=== PATIENT | male | born 1945 | race Caucasian/White ===

== ENCOUNTER 2016-08-14 08:12 | Outpatient (RCR) | payer OTHER, MEDICARE ==
[2016-07-03 08:44] LABS: MEAN PLATELET VOLUME 10.8 FL (7.4-10.4); RED BLOOD COUNT 4.7 10^6/uL (4.35-5.85); RED CELL DISTRIBUTION WIDTH 13.4 % (10.0-14.5); WHITE BLOOD COUNT 5.6 10^3/uL (4.3-11.0)
[2016-07-03 09:17] LABS: ALANINE AMINOTRANSFERASE 19 U/L (0-55); ALBUMIN 3.8 G/DL (3.2-4.5); ANION GAP 8 MMOL/L (5-14); ASPARTATE AMINO TRANSFERASE 20 U/L (5-34); BILIRUBIN,TOTAL 1.4 MG/DL (0.1-1.0); BLOOD UREA NITROGEN 13 MG/DL (7-18); BUN/CREATININE RATIO 14; CARBON DIOXIDE 28 MMOL/L (21-32); CHLORIDE 107 MMOL/L (98-107); CREATININE SERUM 0.96 MG/DL (0.60-1.30); GFR ESTIMATED > 60; GLUCOSE 91 MG/DL (70-105); POTASSIUM 3.5 MMOL/L (3.6-5.0); SODIUM 143 MMOL/L (135-145); TOTAL PROTEIN 5.7 G/DL (6.4-8.2)
[2016-07-17 08:26] LABS: MEAN PLATELET VOLUME 10.9 FL (7.4-10.4); RED BLOOD COUNT 4.59 10^6/uL (4.35-5.85); RED CELL DISTRIBUTION WIDTH 13.5 % (10.0-14.5); WHITE BLOOD COUNT 5.6 10^3/uL (4.3-11.0)
[2016-07-17 08:43] LABS: ALANINE AMINOTRANSFERASE 14 U/L (0-55); ALBUMIN 3.8 G/DL (3.2-4.5); ANION GAP 8 MMOL/L (5-14); ASPARTATE AMINO TRANSFERASE 23 U/L (5-34); BLOOD UREA NITROGEN 14 MG/DL (7-18); BUN/CREATININE RATIO 14; CALCIUM 8.8 MG/DL (8.5-10.1); CARBON DIOXIDE 28 MMOL/L (21-32); CHLORIDE 108 MMOL/L (98-107); CREATININE SERUM 1.03 MG/DL (0.60-1.30); GFR ESTIMATED > 60; GLUCOSE 95 MG/DL (70-105); POTASSIUM 3.7 MMOL/L (3.6-5.0); SODIUM 144 MMOL/L (135-145); TOTAL PROTEIN 5.9 G/DL (6.4-8.2)
[2016-08-14 08:30] LABS: MEAN PLATELET VOLUME 10.8 FL (7.4-10.4); RED BLOOD COUNT 4.54 10^6/uL (4.35-5.85); RED CELL DISTRIBUTION WIDTH 13.7 % (10.0-14.5); WHITE BLOOD COUNT 5.1 10^3/uL (4.3-11.0)
[2016-08-14 08:51] LABS: ALANINE AMINOTRANSFERASE 38 U/L (0-55); ALBUMIN 3.8 G/DL (3.2-4.5); ANION GAP 9 MMOL/L (5-14); ASPARTATE AMINO TRANSFERASE 33 U/L (5-34); BILIRUBIN,TOTAL 1.3 MG/DL (0.1-1.0); BLOOD UREA NITROGEN 11 MG/DL (7-18); BUN/CREATININE RATIO 10; CALCIUM 8.7 MG/DL (8.5-10.1); CARBON DIOXIDE 26 MMOL/L (21-32); CHLORIDE 107 MMOL/L (98-107); CREATININE SERUM 1.05 MG/DL (0.60-1.30); GFR ESTIMATED > 60; GLUCOSE 94 MG/DL (70-105); POTASSIUM 3.5 MMOL/L (3.6-5.0); SODIUM 142 MMOL/L (135-145); TOTAL PROTEIN 5.8 G/DL (6.4-8.2)
== END 2016-10-01 | disposition home or self-care (01) ==
LOC: LAB 08:12
PROVIDERS: ATTEND Internal Medicine Pulmonary Disease
DX: Z09 Encounter for follow-up examination after completed treatment for conditions other than malignant neoplasm (principal); Z94.2 Lung transplant status
CPT/HCPCS: 36415; 80053; 80197; 85027

== ENCOUNTER 2016-11-11 09:08 | Outpatient (RCR) | payer OTHER, MEDICARE ==
--- OUTSIDE RECORDS SUMMARY | 2016-11-11 09:10 | XMS REPORT | Continuity of Care Document ---
Author Author [facility] Organization [facility] Address Unknown Phone Unavailable Care Team Providers Care It Technician Name Role Phone NO, LOCAL PHYSICIAN PCP Unavailable Insurance Providers Payer Name Policy Number Subscriber Name Relationship [employer] [place] [id number] AngelinaValery 01 [employer] [id number] Randy Wild 16 Self / Same As Patient Problems No problem information available. Medications No medication information available. Social History Social History Problem Response Recorded Date/Time Recent Foreign Travel No 07/03/2016 8:18am Hospital Discharge Instructions No hospital discharge instructions. Plan of Care Prescriptions See Medication Section Functional Status No functional status results. Allergies, Adverse Reactions, Alerts No allergy information available. Immunizations No immunization records. Vital Signs No known vital signs results. Results Laboratory Results Test Name Result Units Flags Reference Collection Date/Time Result Date/ Time Comments White Blood Count 5.1 10^3/uL 4.3-11.0 08/14/2016 8:20am 08/14/2016 8: 31am Red Blood Count 4.54 10^6/uL 4.35-5.85 08/14/2016 8:20am 08/14/2016 8: 31am Hemoglobin 14.5 G/DL 13.3-17.7 08/14/2016 8:20am 08/14/2016 8:31am Hematocrit 44 % 40-54 08/14/2016 8:20am 08/14/2016 8:31am Mean Corpuscular Volume 97 FL 80-99 08/14/2016 8:20am 08/14/2016 8: 31am Mean Corpuscular Hemoglobin 32 PG 25-34 08/14/2016 8:2008/14/2016 8: 31am Mean Corpuscular Hemoglobin Concent 33 G/DL 32-36 08/14/2016 8: 8:31am Red Cell Distribution Width 13.7 % 10.0-14.5 08/14/2016 8:202015 8:31am Platelet Count 166 10^3/uL 130-400 08/14/2016 8:2008/14/2016 8:31am Mean Platelet Volume 10.8 FL H 7.4-10.4 08/14/2016 8:2008/14/2016 8: 31am Sodium Level 142 MMOL/L 135-145 08/14/2016 8:08/14/2016 8:53am Potassium Level 3.5 MMOL/L L 3.6-5.0 08/14/2016 8:08/14/2016 8:53am Chloride Level 107 MMOL/L 98-107 08/14/2016 8:08/14/2016 8:53am Carbon Dioxide Level 26 MMOL/L 21-32 08/14/2016 8:08/14/2016 8: 53am Anion Gap 9 MMOL/L 5-14 08/14/2016 8:08/14/2016 8:53am Blood Urea Nitrogen 11 MG/DL 7-18 08/14/2016 8:08/14/2016 8:53am Creatinine 1.05 MG/DL 0.60-1.30 08/14/2016 8:08/14/2016 8:53am BUN/Creatinine Ratio 10 08/14/2016 8:08/14/2016 8:53am Estimat Glomerular Filtration Rate > 60 08/14/2016 8:2015 8:53am GFR INTERPRETIVE DATA UNITS FOR ESTIMATED GFR (eGFR): mL/min/1.73 M2 REFERENCE RANGE FOR ESTIMATED GFR (eGFR) eGFR NORMAL eGFR >60 MODERATELY DECREASED eGFR 30-59 SEVERLY DECREASED eGFR 15-29 KIDNEY FAILURE <15 (OR DIALYSIS) Glucose Level 94 MG/DL 70-105 08/14/2016 8:2008/14/2016 8:53am Calcium Level 8.7 MG/DL 8.5-10.1 08/14/2016 8:08/14/2016 8:53am Total Bilirubin 1.3 MG/DL H 0.1-1.0 08/14/2016 8:20am 08/14/2016 8:53am Alkaline Phosphatase 71 U/L 40-136 08/14/2016 8:20am 08/14/2016 8:53am Aspartate Amino Transf (AST/SGOT) 33 U/L 5-34 08/14/2016 8:20am 2015 8:53am Alanine Aminotransferase (ALT/SGPT) 38 U/L 0-55 08/14/2016 8:20am 08/14 8:53am Total Protein 5.8 G/DL L 6.4-8.2 08/14/2016 8:20am 08/14/2016 8:53am Albumin 3.8 G/DL 3.2-4.5 08/14/2016 8:20am 08/14/2016 8:53am Tacrolimus (Prograf) Level 7.2 ng/mL 08/14/2016 8:20am 08/15/2016 6: 24am Upon initiation of therapy (Trough) 15.0-23.0 ng/mL Steady State Therapy (Trough) 7.0-15.0 ng/mL Optimal Steady State Therapy 12.0 ng/mL Test performed at [facility], CLIA# [id number] [address] [place] [address] Procedures No known history of procedures. Encounters Encounter Location Arrival/Admit Date Discharge/Depart Date Attending Provider Discharged Recurring [facility] 08/14/16 8:12am 11:59pm TINY CHAVEZ MD
[2016-11-13 12:46] LABS: SODIUM 143 MMOL/L (135-145)
[2016-11-13 12:49] LABS: ANION GAP 9 MMOL/L (5-14); BLOOD UREA NITROGEN 16 MG/DL (7-18); BUN/CREATININE RATIO 15; CARBON DIOXIDE 27 MMOL/L (21-32); CHLORIDE 107 MMOL/L (98-107); CREATININE SERUM 1.05 MG/DL (0.60-1.30); GFR ESTIMATED > 60; GLUCOSE 99 MG/DL (70-105)
[2016-11-13 12:50] LABS: ALANINE AMINOTRANSFERASE 18 U/L (0-55); ALBUMIN 3.7 G/DL (3.2-4.5); ASPARTATE AMINO TRANSFERASE 20 U/L (5-34); BILIRUBIN,TOTAL 1.2 MG/DL (0.1-1.0); CALCIUM 8.9 MG/DL (8.5-10.1); RED BLOOD COUNT 4.5 10^6/uL (4.35-5.85); WHITE BLOOD COUNT 5.4 10^3/uL (4.3-11.0)
[2016-11-13 12:51] LABS: RED CELL DISTRIBUTION WIDTH 15.1 % (10.0-14.5)
== END 2017-02-09 | disposition home or self-care (01) ==
LOC: LAB 09:08
PROVIDERS: ATTEND Internal Medicine Pulmonary Disease
DX: Z09 Encounter for follow-up examination after completed treatment for conditions other than malignant neoplasm (principal); Z94.2 Lung transplant status
CPT/HCPCS: 36415; 80053; 80197; 85027

== ENCOUNTER → 2016-11-11 | Outpatient (CLI) | payer OTHER, MEDICARE ==
--- OUTSIDE RECORDS SUMMARY | 2016-11-11 09:14 | XMS REPORT | Continuity of Care Document ---
Author Author [facility] Organization [facility] Address Unknown Phone Unavailable Care Team Providers Care Director Television Name Role Phone NO, LOCAL PHYSICIAN PCP Unavailable Insurance Providers Payer Name Policy Number Subscriber Name Relationship [employer] [place] [id number] AngelinaValery 01 [employer] [id number] Randy Wild 16 Self / Same As [...] State Therapy 12.0 ng/mL Test performed at [facility], CLIA# [id number] [address] [place] [address] Procedures No known history of procedures. Encounters Encounter Location Arrival/Admit Date Discharge/Depart Date Attending Provider Discharged Recurring [facility] 08/14/16 8:12am 11:59pm TINY CHAVEZ MD
--- NOTE | 2016-11-11 13:23 | Diagnostic Imaging Report ---
INDICATION: Post lung transplant. TECHNIQUE: Two view chest 9:49 AM CORRELATION STUDY: 04/16/2016 FINDINGS: Heart size and mediastinal configuration generally stable as tortuous course of thoracic aorta. Lung volumes overall appear to be somewhat diminished. There is flattening of costophrenic angles likely owing to chronic pleural thickening, left greater than right.. No definitive new infiltrate. Lung parenchymal pattern overall generally stable. Accentuated thoracic kyphotic curvature of the lower thoracic spine. IMPRESSION: 1. Overall generally stable appearance about the chest. Overall somewhat low lung volumes with likely chronic pleural thickening. Dictated by: Dictated on workstation # [id number]
== END ==
LOC: RAD 09:10
PROVIDERS: ATTEND Internal Medicine Pulmonary Disease
DX: Z09 Encounter for follow-up examination after completed treatment for conditions other than malignant neoplasm (principal); Z94.2 Lung transplant status
CPT/HCPCS: 71020

== ENCOUNTER → 2016-11-12 | Outpatient (CLI) | payer OTHER, MEDICARE ==
--- OUTSIDE RECORDS SUMMARY | 2016-11-12 13:05 | XMS REPORT | Continuity of Care Document ---
Author Author [facility] Organization [facility] Address Unknown Phone Unavailable Care Team Providers Care Medart Operator Name Role Phone NO, LOCAL PHYSICIAN PCP Unavailable Insurance Providers Payer Name Policy Number Subscriber Name Relationship [employer] [place] [id number] AngelinaValery 01 [employer] [id number] Randy Wild 16 Self / Same As [...] State Therapy 12.0 ng/mL Test performed at [facility], CLIA# [id number] [address] [place] [address] Procedures No known history of procedures. Encounters Encounter Location Arrival/Admit Date Discharge/Depart Date Attending Provider Discharged Recurring [facility] 08/14/16 8:12am 11:59pm TINY CHAVEZ MD
== END ==
LOC: RT 13:01
PROVIDERS: ATTEND Internal Medicine Pulmonary Disease
DX: Z94.2 Lung transplant status (principal)
CPT/HCPCS: 94060; 94726; 94729

== ENCOUNTER → 2017-01-23 | Outpatient (CLI) | payer OTHER, MEDICARE | LOC: RT 09:44 | PROVIDERS: ATTEND Internal Medicine Pulmonary Disease | DX: Z94.2 Lung transplant status (principal) | CPT/HCPCS: 94060 ==

== ENCOUNTER → 2017-09-13 | Outpatient (CLI) | payer OTHER, MEDICARE | LOC: RT 13:48 | DX: D89.9 Disorder involving the immune mechanism, unspecified (principal); T86.819 Unspecified complication of lung transplant; Z94.2 Lung transplant status | CPT/HCPCS: 94060 ==